=== PATIENT | male | born 1960 | race Caucasian/White ===

== ENCOUNTER → 2016-10-20 07:07 | Emergency (ER) | payer OTHER ==
[~2016-10-20 07:07] MED LIST: Divalproex ER TAB(*) 500 MG PO ONE; LORazepam TAB(*) 1 MG PO ONE; OLANzapine TAB* 10 MG PO ONE; clonazePAM TAB(*) 0.5 MG PO ONE
[2016-10-20 07:45] LABS: Urine Bacteria Absent (Absent); Urine Bilirubin Negative (Negative); Urine Glucose 1+(50 mg/dL) (Negative); Urine Nitrite Negative (Negative)
[2016-10-20 07:52] LABS: Benzodiazepine Urine Screen None Detected (None Detect)
[2016-10-20 07:54] LABS: Hematocrit 43 % (42-52); Hemoglobin 14.2 g/dl (14.0-18.0); Mean Corpuscular HGB Conc 33 g/dl (31-36); Mean Corpuscular Hemoglobin 29 pg (27-31); Mean Corpuscular Volume 88 fL (80-94); Mean Platelet Volume 9 um3 (7.4-10.4); Red Blood Count 4.86 10^6/ul (4.0-5.4); Red Cell Distribution Width 15 % (10.5-15); White Blood Count 8.8 10^3/ul (3.5-10.8)
[2016-10-20 08:08] LABS: ALT 14 U/L (7-52); AST 19 U/L (13-39); Alkaline Phosphatase 65 U/L (34-104); Anion Gap 7 mmol/L (2-11); BUN/Creatinine Ratio 12.7 (8-20); Blood Urea Nitrogen 14 mg/dL (6-24); CO2 Carbon Dioxide 22 mmol/L (22-32); Calcium 9.1 mg/dL (8.6-10.3); Chloride 107 mmol/L (101-111); EGFR African American 88.7 (>60); Globulin 3.2 g/dL (2-4); Glucose 106 mg/dL (70-100); Potassium 3.8 mmol/L (3.5-5.0); Sodium 136 mmol/L (133-145); Total Protein 7.2 g/dL (6.4-8.9)
[2016-10-20 09:33] LABS: Acetaminophen < 15 mcg/mL; Alcohol < 10 mg/dL (<10); Salicylate < 2.50 mg/dL (<30)
[2016-10-20 09:44] LABS: TSH (Thyroid Stimulating Horm) 1.41 mcIU/mL (0.34-5.60)
[2016-10-20 22:30] VITALS: BP 89/53
--- NOTE | 2016-10-21 09:09 | ED ---
Benson Arias Anna, scribed for Hayden Kruger MD on 10/20/16 at 0719 . Psychiatric Complaint - HPI Summary HPI Summary: Patient is a 56 y/o male brought in by EMS to [facility] after threatening his this morning. 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 Today, his started in on him, and he tried to have an adult conversation with her and he reports she was impossible to deal with, which caused him pain. He says he was going to use a pellet gun to smash his , the tv, and the sink to get some steam out, as his indignation is quite powerful. He reports that his indignation gets stronger each day. He ran out of his maintenance drug Divalproex. He reports that he needs his medicine and does not want to go home. He denies physical pain or medical concerns. Patient medications were reviewed on this visit. - History Of Current Complaint Chief Complaint: EDMentalHealth Hx Obtained From: Patient Onset/Duration: Still Present Severity Initially: Moderate Severity Currently: Moderate Aggravating Factor(s): Recent Stress Alleviating Factor(s): Medication - He ran out of his medication - Allergies/Home Medications Allergies/Adverse Reactions: Allergies Allergy/AdvReac Type Severity Reaction Status Date / Time No Known Allergies Allergy Verified 10/20/16 07:12 PMH/Surg Hx/FS Hx/Imm Hx Psychiatric History: Reports: Hx Anxiety, Hx Schizophrenia - atypical, Hx Substance Abuse - EtOH Denies: Hx Eating Disorder, Hx of Violent Episodes Against Others - Surgical History Surgery Procedure, Year, and Place: [facility] thorax cyst removal - Immunization History Date of Tetanus Vaccine: unknown Infectious Disease History: No Infectious Disease History: Denies: Traveled Outside the [place] in Last 30 Days - Family History Known Family History: Negative: Cardiac Disease, Diabetes - Social History Lives: With Family Alcohol Use: Occasionally Substance Use Type: Reports: Marijuana Substance Use Comment - Amount & Last Used: OCCASIONAL Smoking Status (MU): Former Smoker Type: Cigarettes Review of Systems Negative: Arthralgia, Myalgia Negative: Headache Psychological: Other - frustrated All Other Systems Reviewed And Are Negative: Yes Physical Exam - Summary Physical Exam Summary: VITAL SIGNS: Reviewed. GENERAL: Patient is a well-developed and nourished male who is lying comfortable in the stretcher. Patient appears somewhat distressed. HEAD AND FACE: No signs of trauma. No ecchymosis, hematomas or skull depressions. No sinus tenderness. EYES: PERRLA, EOMI x 2, No injected conjunctiva, no nystagmus. EARS: Hearing grossly intact. Ear canals and tympanic membranes are within normal limits. MOUTH: Oropharynx within normal limits. NECK: Supple, trachea is midline, no adenopathy, no JVD, no carotid bruit, no c- spine tenderness, neck with full ROM. CHEST: Symmetric, no tenderness at palpation LUNGS: Clear to auscultation bilaterally. No wheezing or crackles. CVS: Regular rate and rhythm, S1 and S2 present, no murmurs or gallops appreciated. ABDOMEN: Soft, non-tender. No signs of distention. No rebound no guarding, and no masses palpated. Bowel sounds are normal. EXTREMITIES: FROM in all major joints, no edema, no cyanosis or clubbing. NEURO: Alert and oriented x 3. No acute neurological deficits. Speech is normal and follows commands. SKIN: Dry and warm PSYCH: Anxious, and denies any suicidal thoughts or plan. No homicidal thoughts or plan. No signs of psychosis or pressure speech. Some tangential speech. Triage Information Reviewed: Yes Vital Signs On Initial Exam: Initial Vitals Temp Pulse Resp BP Pulse Ox 98.2 F 90 20 147/92 99 10/20/16 07:13 10/20/16 07:13 10/20/16 07:13 10/20/16 07:13 10/20/16 07:13 Vital Signs Reviewed: Yes Diagnostics - Vital Signs Vital Signs Temp Pulse Resp BP Pulse Ox 10/20/16 07:13 98.2 F 90 20 147/92 99 - Laboratory Lab Results: Lab Results 10/20/16 10/20/16 10/20/16 Range/Units 07:26 07:26 07:43 WBC 8.8 (3.5-10.8) 10^3/ul RBC 4.86 (4.0-5.4) 10^6/ul Hgb 14.2 (14.0-18.0) g/dl Hct 43 (42-52) % MCV 88 (80-94) fL MCH 29 (27-31) pg MCHC 33 (31-36) g/dl RDW 15 (10.5-15) % Plt Count 142 L (150-450) 10^3/ul MPV 9 (7.4-10.4) um3 Neut % (Auto) 66.3 (38-83) % Lymph % (Auto) 22.6 L (25-47) % Mayes % (Auto) 10.2 H (1-9) % Eos % (Auto) 0.3 (0-6) % Baso % (Auto) 0.6 (0-2) % Absolute Neuts (auto) 5.8 (1.5-7.7) 10^3/ul Absolute Lymphs (auto) 2.0 (1.0-4.8) 10^3/ul Absolute Monos (auto) 0.9 H (0-0.8) 10^3/ul Absolute Eos (auto) 0 (0-0.6) 10^3/ul Absolute Basos (auto) 0.1 (0-0.2) 10^3/ul Absolute Nucleated RBC 0.01 10^3/ul Nucleated RBC % 0.1 Sodium (133-145) mmol/L Potassium (3.5-5.0) mmol/L Chloride (101-111) mmol/L Carbon Dioxide (22-32) mmol/L Anion Gap (2-11) mmol/L BUN (6-24) mg/dL Creatinine (0.67-1.17) mg/dL Est GFR ( Amer) (>60) Est GFR (Non-Af Amer) (>60) BUN/Creatinine Ratio (8-20) Glucose (70-100) mg/dL Calcium (8.6-10.3) mg/dL Total Bilirubin (0.2-1.0) mg/dL AST (13-39) U/L ALT (7-52) U/L Alkaline Phosphatase (34-104) U/L Total Protein (6.4-8.9) g/dL Albumin (3.2-5.2) g/dL Globulin (2-4) g/dL Albumin/Globulin Ratio (1-3) TSH (0.34-5.60) mcIU/mL Urine Color Yellow Urine Appearance Clear Urine pH 7.0 (5-9) Ur Specific [place] 1.016 (1.010-1.030) Urine Protein Negative (Negative) Urine Ketones Negative (Negative) Urine Blood Negative (Negative) Urine Nitrate Negative (Negative) Urine Bilirubin Negative (Negative) Urine Urobilinogen Negative (Negative) Ur Leukocyte Esterase Trace H (Negative) Urine WBC (Auto) Trace(0-5/hpf) (Absent) Urine RBC (Auto) Absent (Absent) Urine Bacteria Absent (Absent) Urine Glucose 1+(50 mg/dl) H (Negative) Urine Ascorbic Acid * H (Negative) Salicylates (<30) mg/dL Urine Opiates Screen None detected (None Detect) Acetaminophen mcg/mL Ur Barbiturates Screen None detected (None Detect) Ur Phencyclidine Scrn None detected (None Detect) Ur Amphetamines Screen None detected (None Detect) U Benzodiazepines Scrn None detected (None Detect) Urine Cocaine Screen None detected (None Detect) U Cannabinoids Screen Presumptive positive H (None Detect) Serum Alcohol (<10) mg/dL 10/20/16 Range/Units 07:43 WBC (3.5-10.8) 10^3/ul RBC (4.0-5.4) 10^6/ul Hgb (14.0-18.0) g/dl Hct (42-52) % MCV (80-94) fL MCH (27-31) pg MCHC (31-36) g/dl RDW (10.5-15) % Plt Count (150-450) 10^3/ul MPV (7.4-10.4) um3 Neut % (Auto) (38-83) % Lymph % (Auto) (25-47) % Mayes % (Auto) (1-9) % Eos % (Auto) (0-6) % Baso % (Auto) (0-2) % Absolute Neuts (auto) (1.5-7.7) 10^3/ul Absolute Lymphs (auto) (1.0-4.8) 10^3/ul Absolute Monos (auto) (0-0.8) 10^3/ul Absolute Eos (auto) (0-0.6) 10^3/ul Absolute Basos (auto) (0-0.2) 10^3/ul Absolute Nucleated RBC 10^3/ul Nucleated RBC % Sodium 136 (133-145) mmol/L Potassium 3.8 (3.5-5.0) mmol/L Chloride 107 (101-111) mmol/L Carbon Dioxide 22 (22-32) mmol/L Anion Gap 7 (2-11) mmol/L BUN 14 (6-24) mg/dL Creatinine 1.10 (0.67-1.17) mg/dL Est GFR ( Amer) 88.7 (>60) Est GFR (Non-Af Amer) 69.0 (>60) BUN/Creatinine Ratio 12.7 (8-20) Glucose 106 H (70-100) mg/dL Calcium 9.1 (8.6-10.3) mg/dL Total Bilirubin 0.30 (0.2-1.0) mg/dL AST 19 (13-39) U/L ALT 14 (7-52) U/L Alkaline Phosphatase 65 (34-104) U/L Total Protein 7.2 (6.4-8.9) g/dL Albumin 4.0 (3.2-5.2) g/dL Globulin 3.2 (2-4) g/dL Albumin/Globulin Ratio 1.3 (1-3) TSH 1.41 (0.34-5.60) mcIU/mL Urine Color Urine Appearance Urine pH (5-9) Ur Specific [place] (1.010-1.030) Urine Protein (Negative) Urine Ketones (Negative) Urine Blood (Negative) Urine Nitrate (Negative) Urine Bilirubin (Negative) Urine Urobilinogen (Negative) Ur Leukocyte Esterase (Negative) Urine WBC (Auto) (Absent) Urine RBC (Auto) (Absent) Urine Bacteria (Absent) Urine Glucose (Negative) Urine Ascorbic Acid (Negative) Salicylates < 2.50 (<30) mg/dL Urine Opiates Screen (None Detect) Acetaminophen < 15 mcg/mL Ur Barbiturates Screen (None Detect) Ur Phencyclidine Scrn (None Detect) Ur Amphetamines Screen (None Detect) U Benzodiazepines Scrn (None Detect) Urine Cocaine Screen (None Detect) U Cannabinoids Screen (None Detect) Serum Alcohol < 10 (<10) mg/dL Result Diagrams: 10/20/16 07:43 10/20/16 07:43 Lab Statement: Any lab studies that have been ordered have been reviewed, and results considered in the medical decision making process. Course/Dx - Course Course Of Treatment: Patient is medically cleared for MHU evaluation at 0800. Assessment/Plan: Discussed case with Dr. Lopez. He recommends admission. The patient is from [place], and they will attempt to transfer pt to the [place]. Patient is hemodynamically stable and A+Ox3 - Differential Dx/Clinical Impression Provider Diagnosis: Homicidal ideation, Adjustment disorder - Physician Notifications Discussed Care Of Patient With: Discussed case with Dr. Lopez. He recommends admission. The patient is from [place], and they will attempt to transfer pt to the [place]. Discharge - Discharge Plan Condition: Fair Disposition: PSYCHIATRIC FACILITY-OTHER Discharge Disposition Comment: [facility] Referrals: Non Staff,Doctor [Primary Care Provider] - The documentation as recorded by the Benson chery Anna accurately reflects the service I personally performed and the decisions made by me, Hayden Kruger MD.
== END ==
LOC: ED 07:07
DX: R45.850 Homicidal ideations (principal); F43.20 Adjustment disorder, unspecified; F20.9 Schizophrenia, unspecified; Z87.891 Personal history of nicotine dependence
CPT/HCPCS: 36415; 80053; 80307; 80320; 80329; 81003; 81015; 84443; 85025; 87086; 99283; A9270-GY; G0480

== ENCOUNTER → 2016-11-05 10:24 | Emergency (ER) | payer OTHER ==
[~2016-11-05 10:24] MED LIST changes: -Divalproex ER TAB(*) 500 MG PO ONE; -LORazepam TAB(*) 1 MG PO ONE; -OLANzapine TAB* 10 MG PO ONE; +Potassium Chlor TAB* 20 MEQ TAB.ER PO ONE; -clonazePAM TAB(*) 0.5 MG PO ONE
[2016-11-05 11:52] LABS: Hematocrit 42 % (42-52); Mean Corpuscular HGB Conc 34 g/dl (31-36); Mean Corpuscular Hemoglobin 29 pg (27-31); Mean Corpuscular Volume 86 fL (80-94); Mean Platelet Volume 8 um3 (7.4-10.4); Red Blood Count 4.85 10^6/ul (4.0-5.4); Red Cell Distribution Width 14 % (10.5-15); White Blood Count 10.6 10^3/ul (3.5-10.8)
[2016-11-05 12:08] LABS: ALT 23 U/L (7-52); AST 48 U/L (13-39); Albumin 3.9 g/dL (3.2-5.2); Alkaline Phosphatase 52 U/L (34-104); Anion Gap 9 mmol/L (2-11); BUN/Creatinine Ratio 16.8 (8-20); Blood Urea Nitrogen 18 mg/dL (6-24); CO2 Carbon Dioxide 22 mmol/L (22-32); Calcium 9.1 mg/dL (8.6-10.3); Chloride 106 mmol/L (101-111); EGFR African American 91.6 (>60); EGFR Non-African American 71.2 (>60); Globulin 2.8 g/dL (2-4); Glucose 86 mg/dL (70-100); Potassium 3.3 mmol/L (3.5-5.0); Sodium 137 mmol/L (133-145); Total Protein 6.7 g/dL (6.4-8.9)
[2016-11-05 12:22] LABS: Acetaminophen < 15 mcg/mL; Alcohol < 10 mg/dL (<10); Salicylate < 2.50 mg/dL (<30)
[2016-11-05 12:30] LABS: TSH (Thyroid Stimulating Horm) 1.18 mcIU/mL (0.34-5.60)
[2016-11-05 13:11] LABS: Urine Bilirubin Negative (Negative); Urine Glucose Negative (Negative); Urine Nitrite Negative (Negative)
[2016-11-05 13:34] LABS: Benzodiazepine Urine Screen None Detected (None Detect)
[2016-11-05 15:05] VITALS: BP 101/63
--- NOTE | 2016-11-05 17:30 | ED ---
Messi Arias Aidan, scribed for Hayden Kruger MD on 11/05/16 at 1358 . Psychiatric Complaint - HPI Summary HPI Summary: 56 y/o male presents to the ED by police with a complaint of acutely and moderately feeling unlike himself. This morning at 0730, he smoked marijuana. Shortly after, he did not take his to her doctors appointment and felt bad as a result. He states that he was upset because he felt mean and out of character. He claims that the effects of the marijuana are starting to wear off. Pt denies any SI/HI. 2-3 days ago, he had a stressful situation during which his car was impounded. Currently, he takes a high dose of Depakote. Hx of bipolar disorder and schizophrenia. He is here today because police brought him in after he called 911 asking whether or not his was okay. - History Of Current Complaint Chief Complaint: EDMentalHealth Time Seen by Provider: 11/05/16 11:52 Hx Obtained From: Patient Onset/Duration: Sudden Onset, Lasting Hours, Resolved Timing: Intermittent Episode Lasting Severity Initially: Moderate Severity Currently: Mild Character: Depressed - sad and anxious about his 's well being, Anxious Aggravating Factor(s): Other - marijuana use today Alleviating Factor(s): Other - unknown Associated Signs And Symptoms: Negative: Negative - Hx of bipolar disorder Related History: Positive For: Prior Psychiatric Issues - bipolar disorder, schizophrenia Has Suicidal: Denies: Thoughts, With A Plan, Demonstrates Gesture, Has Prior Attempt(s) Has Homicidal: Denies: Thoughts, With A Plan, Demonstrates Gesture, Has Prior Attempt(s) Ingestion History: Type/Name Of Drug - marijuana - Risk Factor(s) Completed Suicide Risk Factors: Male - Allergies/Home Medications Allergies/Adverse Reactions: Allergies Allergy/AdvReac Type Severity Reaction Status Date / Time No Known Allergies Allergy Verified 10/20/16 07:12 PMH/Surg Hx/FS Hx/Imm Hx Psychiatric History: Reports: Hx Anxiety, Hx Schizophrenia - atypical, Hx Bipolar Disorder, Hx Substance Abuse - EtOH Denies: Hx Eating Disorder, Hx of Violent Episodes Against Others - Surgical History Surgery Procedure, Year, and Place: righ thorax cyst removal - Immunization History Date of Tetanus Vaccine: unknown Infectious Disease History: Unable to Obtain/Confirm Infectious Disease History: Denies: Traveled Outside the [place] in Last 30 Days - Family History Known Family History: Negative: Cardiac Disease, Diabetes - Social History Occupation: Disabled Lives: Alone Alcohol Use: Occasionally Substance Use Type: Reports: Marijuana Substance Use Comment - Amount & Last Used: OCCASIONAL Smoking Status (MU): Former Smoker Type: Cigarettes Review of Systems Constitutional: Negative Eyes: Negative ENT: Negative Cardiovascular: Negative Respiratory: Negative Gastrointestinal: Negative Genitourinary: Negative Musculoskeletal: Negative Skin: Negative Neurological: Other - Pt feeling affects of smoking marijuana Negative: Headache, Weakness, Paresthesia, Numbness, Syncope, Slurred Speech Psychological: Normal All Other Systems Reviewed And Are Negative: Yes Physical Exam - Summary Physical Exam Summary: VITAL SIGNS: Reviewed. GENERAL: Patient is a well-developed and nourished MALE who is lying comfortable in the stretcher. Patient is not in any acute respiratory distress. HEAD AND FACE: No signs of trauma. No ecchymosis, hematomas or skull depressions. No sinus tenderness. EYES: PERRLA, EOMI x 2, No injected conjunctiva, no nystagmus. EARS: Hearing grossly intact. Ear canals and tympanic membranes are within normal limits. MOUTH: Oropharynx within normal limits. NECK: Supple, trachea is midline, no adenopathy, no JVD, no carotid bruit, no c- spine tenderness, neck with full ROM. CHEST: Symmetric, no tenderness at palpation LUNGS: Clear to auscultation bilaterally. No wheezing or crackles. CVS: Regular rate and rhythm, S1 and S2 present, no murmurs or gallops appreciated. ABDOMEN: Soft, non-tender. No signs of distention. No rebound no guarding, and no masses palpated. Bowel sounds are normal. EXTREMITIES: FROM in all major joints, no edema, no cyanosis or clubbing. NEURO: Alert and oriented x 3. No acute neurological deficits. Speech is normal and follows commands. SKIN: Dry and warm Triage Information Reviewed: Yes Vital Signs On Initial Exam: Initial Vitals Temp Pulse Resp BP Pulse Ox 97.5 F 67 20 139/93 97 11/05/16 10:38 11/05/16 10:38 11/05/16 10:38 11/05/16 10:38 11/05/16 10:38 Vital Signs Reviewed: Yes - [place] Coma Scale Coma Scale Total: 15 Diagnostics - Vital Signs Vital Signs Temp Pulse Resp BP Pulse Ox 11/05/16 10:41 97.9 F 84 17 139/93 97 11/05/16 10:38 97.5 F 67 20 139/93 97 - Laboratory Lab Results: Lab Results 11/05/16 11/05/16 11/05/16 Range/Units 11:32 11:32 12:57 WBC 10.6 (3.5-10.8) 10^3/ul RBC 4.85 (4.0-5.4) 10^6/ul Hgb 14.0 (14.0-18.0) g/dl Hct 42 (42-52) % MCV 86 (80-94) fL MCH 29 (27-31) pg MCHC 34 (31-36) g/dl RDW 14 (10.5-15) % Plt Count 169 (150-450) 10^3/ul MPV 8 (7.4-10.4) um3 Neut % (Auto) 69.4 (38-83) % Lymph % (Auto) 22.6 L (25-47) % [place] % (Auto) 7.1 (1-9) % Eos % (Auto) 0.5 (0-6) % Baso % (Auto) 0.4 (0-2) % Absolute Neuts (auto) 7.3 (1.5-7.7) 10^3/ul Absolute Lymphs (auto) 2.4 (1.0-4.8) 10^3/ul Absolute Monos (auto) 0.8 (0-0.8) 10^3/ul Absolute Eos (auto) 0 (0-0.6) 10^3/ul Absolute Basos (auto) 0 (0-0.2) 10^3/ul Absolute Nucleated RBC 0.01 10^3/ul Nucleated RBC % 0.1 Sodium 137 (133-145) mmol/L Potassium 3.3 L (3.5-5.0) mmol/L Chloride 106 (101-111) mmol/L Carbon Dioxide 22 (22-32) mmol/L Anion Gap 9 (2-11) mmol/L BUN 18 (6-24) mg/dL Creatinine 1.07 (0.67-1.17) mg/dL Est GFR ( Amer) 91.6 (>60) Est GFR (Non-Af Amer) 71.2 (>60) BUN/Creatinine Ratio 16.8 (8-20) Glucose 86 (70-100) mg/dL Calcium 9.1 (8.6-10.3) mg/dL Total Bilirubin 0.40 (0.2-1.0) mg/dL AST 48 H (13-39) U/L ALT 23 (7-52) U/L Alkaline Phosphatase 52 (34-104) U/L Total Protein 6.7 (6.4-8.9) g/dL Albumin 3.9 (3.2-5.2) g/dL Globulin 2.8 (2-4) g/dL Albumin/Globulin Ratio 1.4 (1-3) TSH 1.18 (0.34-5.60) mcIU/mL Urine Color Colorless Urine Appearance Clear Urine pH 6.0 (5-9) Ur Specific [place] 1.002 L (1.010-1.030) Urine Protein Negative (Negative) Urine Ketones Negative (Negative) Urine Blood Negative (Negative) Urine Nitrate Negative (Negative) Urine Bilirubin Negative (Negative) Urine Urobilinogen Negative (Negative) Ur Leukocyte Esterase Negative (Negative) Urine Glucose Negative (Negative) Salicylates < 2.50 (<30) mg/dL Urine Opiates Screen (None Detect) Acetaminophen < 15 mcg/mL Ur Barbiturates Screen (None Detect) Ur Phencyclidine Scrn (None Detect) Ur Amphetamines Screen (None Detect) U Benzodiazepines Scrn (None Detect) Urine Cocaine Screen (None Detect) U Cannabinoids Screen (None Detect) Serum Alcohol < 10 (<10) mg/dL 11/05/16 Range/Units 12:57 WBC (3.5-10.8) 10^3/ul RBC (4.0-5.4) 10^6/ul Hgb (14.0-18.0) g/dl Hct (42-52) % MCV (80-94) fL MCH (27-31) pg MCHC (31-36) g/dl RDW (10.5-15) % Plt Count (150-450) 10^3/ul MPV (7.4-10.4) um3 Neut % (Auto) (38-83) % Lymph % (Auto) (25-47) % [place] % (Auto) (1-9) % Eos % (Auto) (0-6) % Baso % (Auto) (0-2) % Absolute Neuts (auto) (1.5-7.7) 10^3/ul Absolute Lymphs (auto) (1.0-4.8) 10^3/ul Absolute Monos (auto) (0-0.8) 10^3/ul Absolute Eos (auto) (0-0.6) 10^3/ul Absolute Basos (auto) (0-0.2) 10^3/ul Absolute Nucleated RBC 10^3/ul Nucleated RBC % Sodium (133-145) mmol/L Potassium (3.5-5.0) mmol/L Chloride (101-111) mmol/L Carbon Dioxide (22-32) mmol/L Anion Gap (2-11) mmol/L BUN (6-24) mg/dL Creatinine (0.67-1.17) mg/dL Est GFR ( Amer) (>60) Est GFR (Non-Af Amer) (>60) BUN/Creatinine Ratio (8-20) Glucose (70-100) mg/dL Calcium (8.6-10.3) mg/dL Total Bilirubin (0.2-1.0) mg/dL AST (13-39) U/L ALT (7-52) U/L Alkaline Phosphatase (34-104) U/L Total Protein (6.4-8.9) g/dL Albumin (3.2-5.2) g/dL Globulin (2-4) g/dL Albumin/Globulin Ratio (1-3) TSH (0.34-5.60) mcIU/mL Urine Color Urine Appearance Urine pH (5-9) Ur Specific [place] (1.010-1.030) Urine Protein (Negative) Urine Ketones (Negative) Urine Blood (Negative) Urine Nitrate (Negative) Urine Bilirubin (Negative) Urine Urobilinogen (Negative) Ur Leukocyte Esterase (Negative) Urine Glucose (Negative) Salicylates (<30) mg/dL Urine Opiates Screen None detected (None Detect) Acetaminophen mcg/mL Ur Barbiturates Screen None detected (None Detect) Ur Phencyclidine Scrn None detected (None Detect) Ur Amphetamines Screen None detected (None Detect) U Benzodiazepines Scrn None detected (None Detect) Urine Cocaine Screen None detected (None Detect) U Cannabinoids Screen Presumptive positive H (None Detect) Serum Alcohol (<10) mg/dL Result Diagrams: 11/05/16 11:32 11/05/16 11:32 Lab Statement: Any lab studies that have been ordered have been reviewed, and results considered in the medical decision making process. Course/Dx - Course Assessment/Plan: 56 y/o male presents to the ED by police with a complaint of acutely and moderately feeling unlike himself. This morning at 0730, he smoked marijuana. Shortly after, he did not take his to her doctor's appointment and felt bad as a result. He states that he was upset because he felt mean and out of character. He claims that the effects of the marijuana are starting to wear off. Pt denies any SI/HI. 2-3 days ago, he had a stressful situation during which his car was impounded. Currently, he takes a high dose of Depakote. Hx of bipolar disorder and schizophrenia. He is here today because police brought him in after he called 911 asking whether or not his was okay. All blood work WNL. He is medically cleared. He is awaiting for a MHE. Patient is hemodynamically stable and A+O x 3. Dr. Narvaez (Psychiatry) saw and examined the patient and clear the patient and recommends to discharge the patient home with outpatient follow up. - Differential Dx/Clinical Impression Differential Diagnosis/HQI/PQRI: Positive: Anxiety, Depression, Suicidal Ideation Provider Diagnosis: Bipolar disorder Discharge - Discharge Plan Condition: Stable Disposition: HOME Referrals: Non Staff,Doctor [Primary Care Provider] - The documentation as recorded by the Messi chery Aidan accurately reflects the service I personally performed and the decisions made by me, Hayden Kruger MD.
== END | disposition home or self-care (01) ==
LOC: ED 10:24
DX: F31.9 Bipolar disorder, unspecified (principal); Z87.891 Personal history of nicotine dependence; Z53.21 Procedure and treatment not carried out due to patient leaving prior to being seen by health care provider
CPT/HCPCS: 36415; 80053; 80307; 80320; 80329; 81003; 84443; 85025; G0480

== ENCOUNTER 2016-12-12 04:56 | Observation (INO) | payer OTHER ==
[2016-12-12 05:26] LABS: Hematocrit 41 % (42-52); Hemoglobin 13.6 g/dl (14.0-18.0); Mean Corpuscular HGB Conc 33 g/dl (31-36); Mean Corpuscular Hemoglobin 29 pg (27-31); Mean Corpuscular Volume 86 fL (80-94); Mean Platelet Volume 8 um3 (7.4-10.4); Red Blood Count 4.75 10^6/ul (4.0-5.4); Red Cell Distribution Width 15 % (10.5-15); White Blood Count 6.5 10^3/ul (3.5-10.8)
[2016-12-12 05:38] LABS: ALT 8 U/L (7-52); AST 13 U/L (13-39); Albumin 3.8 g/dL (3.2-5.2); Alkaline Phosphatase 49 U/L (34-104); Anion Gap 10 mmol/L (2-11); BUN/Creatinine Ratio 16.3 (8-20); Blood Urea Nitrogen 14 mg/dL (6-24); CO2 Carbon Dioxide 19 mmol/L (22-32); Chloride 108 mmol/L (101-111); EGFR African American 117.9 (>60); EGFR Non-African American 91.7 (>60); Globulin 2.6 g/dL (2-4); Glucose 124 mg/dL (70-100); Potassium 3.3 mmol/L (3.5-5.0); Sodium 137 mmol/L (133-145); Total Protein 6.4 g/dL (6.4-8.9)
--- NOTE | 2016-12-12 05:50 | ED ---
martha Arias Timothy, scribed for Jose LuisPapa on 12/12/16 at 0511 . Substance Abuse/Use - HPI Summary HPI Summary: Mikel Krishnamurthy is a 56 yo male presenting to [facility] with possible OD of depakote. Pt states he believes he took an extra dose (5 pills) of depakote. He states he noticed the effects on his motor skills. Pt states he "wanted to feel better" and denies SI or HI. He states prior to taking the pills he "didn' t care". He is not in any current pain. His MHx includes atypical schizophrenia , bipolar disorder, anxiety, EtOH abuse. - History Of Current Complaint Stated Complaint: OVERDOSE Time Seen by Provider: 12/12/16 05:11 Hx Obtained From: Patient Onset/Duration of Drug/ETOH Abuse: Hours Ingestion History: Type/Name Of Drug - depakote, Amount Ingested - 5x pills Overdose Characteristics: Oral Timing Of Abuse: Daily Severity Initially: Moderate Severity Currently: Moderate - Allergies/Home Medications Allergies/Adverse Reactions: Allergies Allergy/AdvReac Type Severity Reaction Status Date / Time No Known Allergies Allergy Verified 10/20/16 07:12 Home Medications: Home Medications Aspirin [Aspirin 81 MG TAB] 81 mg PO DAILY 12/12/16 [History Confirmed 12/12/16] QUEtiapine TAB* [SEROquel TAB*] 400 mg PO BEDTIME 12/12/16 [History Confirmed ] PMH/Surg Hx/FS Hx/Imm Hx Psychiatric History: Reports: Hx Anxiety, Hx Schizophrenia - atypical, Hx Bipolar Disorder, Hx Substance Abuse - EtOH Denies: Hx Eating Disorder, Hx of Violent Episodes Against Others - Surgical History Surgery Procedure, Year, and Place: rig thorax cyst removal - Immunization History Date of Tetanus Vaccine: unknown Infectious Disease History: No Infectious Disease History: Denies: Traveled Outside the [place] in Last 30 Days - Family History Known Family History: Positive: Other - psychotic disorders, EtOG abuse Negative: Cardiac Disease, Diabetes - Social History Alcohol Use: Occasionally Substance Use Type: Reports: Marijuana Substance Use Comment - Amount & Last Used: OCCASIONAL Smoking Status (MU): Former Smoker Type: Cigarettes Review of Systems Constitutional: Negative Eyes: Negative ENT: Negative Cardiovascular: Negative Respiratory: Negative Gastrointestinal: Negative Genitourinary: Negative Musculoskeletal: Negative Skin: Negative Neurological: Negative Positive: Other - OD on depakote All Other Systems Reviewed And Are Negative: Yes Physical Exam Triage Information Reviewed: Yes Vital Signs On Initial Exam: Initial Vitals Pulse Resp Pulse Ox 101 17 97 12/12/16 05:01 12/12/16 05:01 12/12/16 05:01 Vital Signs Reviewed: Yes Appearance: Positive: Well-Appearing, No Pain Distress, Well-Nourished Skin: Positive: Warm, Skin Color Reflects Adequate Perfusion, Dry Head/Face: Positive: Normal Head/Face Inspection Eyes: Positive: EOMI, MISTY ENT: Positive: Normal ENT inspection, Hearing grossly normal. Negative: Muffled /hoarse voice Neck: Positive: Supple, Nontender Respiratory/Lung Sounds: Positive: Clear to Auscultation, Breath Sounds Present Cardiovascular: Positive: Pulses are Symmetrical in both Upper and Lower Extremities, Tachycardia Abdomen Description: Positive: Nontender, Soft Bowel Sounds: Positive: Present Musculoskeletal: Positive: Normal, Strength/ROM Intact Neurological: Positive: Normal, Sensory/Motor Intact, Alert, Oriented to Person Place, Time Psychiatric: Positive: Depressed Diagnostics - Vital Signs Vital Signs Temp Pulse Resp BP Pulse Ox 12/12/16 05:02 97.5 F 93 16 132/75 96 12/12/16 05:01 101 17 97 - Laboratory Result Diagrams: 12/12/16 05:00 12/12/16 05:00 Lab Statement: Any lab studies that have been ordered have been reviewed, and results considered in the medical decision making process. - EKG 0526 Cardiac Rate: NL - 90 BPM EKG Interpretation: NSR @ [address] changes Course/Dx - Course Assessment/Plan: Mikel Krishnamurthy is a 56 yo male presenting to [facility] S/ P OD on depakote. Pt medication list reviewed this visit. His EKG suggests NSR with old ST changes. He will be signed out to Dr. Kruger pending medical clearance for [facility]. - Diagnoses Differential Diagnosis/HQI/PQRI: Positive: Depression Provider Diagnoses: Drug overdose, Depression Discharge - Discharge Plan Condition: Stable Disposition: OTHER Discharge Disposition Comment: sign out pending medical clearance for MHUE The documentation as recorded by the martha chery Timothy accurately reflects the service I personally performed and the decisions made by , Papa Amaya.
[2016-12-12 05:52] LABS: Acetaminophen < 15 mcg/mL; Alcohol < 10 mg/dL (<10); Salicylate < 2.50 mg/dL (<30)
[2016-12-12 06:01] LABS: TSH (Thyroid Stimulating Horm) 1.68 mcIU/mL (0.34-5.60)
[2016-12-12] MEDS ORDERED: Potassium Chlor TAB* 20 MEQ TAB.ER PO ONE ×2 (06:01→09:49)
[2016-12-12] MEDS ORDERED: Charcoal ACTIVATED* 25 GM/120 ML BTL PO ONE ×2 (06:23→08:38)
[2016-12-12 06:33] LABS: Urine Bilirubin Negative (Negative); Urine Glucose Negative (Negative); Urine Nitrite Negative (Negative)
[2016-12-12 06:36] LABS: Benzodiazepine Urine Screen None Detected (None Detect)
[2016-12-12] MEDS ORDERED: Nicotine Lozenge* 4 MG LOZENGE MT ONE ×2 (06:47)
[2016-12-12] MEDS ORDERED: NS 0.9% 1000 ML* 1,000 ML IV ONE (08:45)
[2016-12-12 09:58] LABS: Albumin 3.9 g/dL (3.2-5.2); BUN/Creatinine Ratio 12.5 (8-20); Calcium 8.8 mg/dL (8.6-10.3); EGFR African American 114.8 (>60); EGFR Non-African American 89.3 (>60); Globulin 2.5 g/dL (2-4); Potassium 3.4 mmol/L (3.5-5.0); Total Bilirubin 0.4 mg/dL (0.2-1.0); Total Protein 6.4 g/dL (6.4-8.9)
[2016-12-12] MEDS: NS 0.9% 1000 ML* 2,000 ML IV ONE (10:16)
[2016-12-12 11:43] LABS: Troponin I 0.01 ng/mL (<0.04)
[2016-12-12] MEDS: NS 0.9% 1000 ML* 1,000 ML IV SCH ×2 (13:32→22:53)
[2016-12-12] MEDS: Nicotine Lozenge* 4 MG LOZENGE MT PRN ×3 (14:13→23:11)
--- NOTE | 2016-12-12 14:19 | HP ---
CC: CT Office, [place], [place] * HISTORY AND PHYSICAL: DATE OF ADMISSION: 12/12/16 PRIMARY CARE PROVIDER: CT office in [place]. The patient cannot recall the name. CHIEF COMPLAINT: Depakote overdose. HISTORY OF PRESENT ILLNESS: Mikel Krishnamurthy is a 56-year-old male with history of schizoaffective disorder and bipolar disorder, who presented to the hospital after taking 10 tablets of Depakote to stabilize his mood. The patient stated that he felt "too low," and he took 10 of his prescribed Depakote tablets to "pick himself up." When he presented to the ED, his initial Depakote level was 168. He stayed in the hospital for 3 hours and his Depakote level has increased to 195. He is going to be placed on overnight observation with diagnosis of Depakote overdose and psychiatric clearance in the morning. PAST MEDICAL HISTORY: 1. History of schizophrenia. 2. History of bipolar disorder. MEDICATIONS: Include: 1. Depakote ER 2500 mg at bedtime. 2. Aspirin 81 mg daily. 3. Seroquel 400 mg at bedtime. ALLERGIES: No known drug allergies. FAMILY HISTORY: Positive for mother with ovarian cancer and father with lung cancer, both . SOCIAL HISTORY: When I asked about smoking, the patient stated that "the only smoke that I will allow in my body is marijuana." He smokes marijuana several times a day. He denies any alcohol use and he stated that he quit in 1990. He denies any drug use. He lives with his who has dementia. For his surrogate, he is naming his brother, Shekhar Krishnamurthy. REVIEW OF SYSTEMS: Please see history of present illness. The patient denies suicidal ideations, but he states that he feels "low." He denies any chest pain or shortness of breath. He denies any gastrointestinal symptoms. All the remaining 14 systems were reviewed with the patient and were otherwise negative. Please also note that the patient stated that right after taking Depakote, he felt that his muscle control was "weakened." He stated that he had problems with fine motor functions and manipulating with his fingers. That apparently resolved. PHYSICAL EXAMINATION GENERAL: The patient is a pleasant 56-year-old male who is in no acute distress. The patient is a rather poor historian, but he is oriented x3. VITAL SIGNS: Blood pressure of 126/70, heart rate of 85 beats per minute, respiratory rate 14, oxygen saturation 97% on room air, temperature 97.5. HEENT: Head is atraumatic, normocephalic. Eyes: Pupils equal and reactive to light and accommodation. Oropharynx with poor dentition. Mucosa moist. Blackened tongue from charcoal that he was administered in the ED. NECK: Supple. No JVD. No bruits bilaterally. RESPIRATORY: Clear to auscultation bilaterally. CARDIOVASCULAR: Regular rate and rhythm. No murmur. ABDOMEN: Soft, nontender. Bowel sounds present in all 4 quadrants. EXTREMITIES: There is no edema. Pulses +2 bilaterally. No clubbing or cyanosis. NEURO: Speech clear. Cranial nerves II through XII grossly intact. Motor strength is 5/5 bilaterally. SKIN: On evaluation of the skin, no ecchymotic areas or rashes noted. DIAGNOSTIC STUDIES/LAB DATA: Showed Depakote level of 195. White blood cell count of 6.5, hemoglobin of 13.6, hematocrit of 41, and platelets of 125. The patient has a history of baseline thrombocytopenia. Sodium of 136, potassium 3.3, chloride 108, carbon dioxide 19, BUN 14, creatinine 0.86. Liver function test is unremarkable. Ammonia level 26. Urinalysis unremarkable, trace ketones. Urine drug screen positive for cannabinoids. The patient's EKG showed ST depressions in leads V2 to V5. This was slightly more pronounced from his baseline EKG from 2013. Troponin is pending at the time of dictation. ASSESSMENT AND PLAN: 1. Depakote overdose. The patient does not appear to be suicidal and he denies suicide ideation. It appears that he has problems with bipolar disorder and ability to control it. He also is a poor and somewhat disorganized historian, although currently he is oriented x3. At this point, the patient is going to be observed on telemetry monitored bed. He is going to be placed on intravenous hydration with normal saline. His Depakote is going to be held and Depakote level as well as complete metabolic panel levels and ammonia levels are going to be checked every 6 hours until peak. I will ask Psychiatry to see the patient in the morning. Due to somewhat disorganized thinking during the patient's interview, I am going to place him on one-to-one monitoring, although once again he does not appear to be suicidal. 2. The patient's nighttime Seroquel is going to be continued. 3. For DVT prophylaxis, the patient is at low risk and ambulation is going to be encouraged. 4. The patient's code status is full and his surrogate is his brother, Shekhar. TIME SPENT: Approximately 62 minutes was spent on admission of this patient, more than half that time was spent [id number] with the patient during the interview and physical exam. [id number]/[facility] #: [id number] TESSA
--- NOTE | 2016-12-12 20:01 | ED ---
Audra Arias Edward, scribed for Hayden Kruger MD on 12/12/16 at 0727 . Progress - Progress Note Progress Note: Patient feels better on visit. Patient's valproic acid levels came back at 195.0 - higher than initial levels. Poison control was called, who recommended we take the patient's ammonia, CMP and Depakote levels in 6-8 hours, in addition to another EKG. 2nd EKG - 08:51 - SR @ [address] depressions @ v2 to v6 and also in II and III. Patient was accepted for admission by Dr. Hsu @ 08:45. PE - VITAL SIGNS:~Reviewed. GENERAL:~ Patient is a well-developed and nourished male who is lying comfortable in the stretcher.~ Patient is not in any acute respiratory distress. HEAD AND FACE:~No signs of trauma.~ No ecchymosis, hematomas or skull depressions. No sinus tenderness. EYES:~PERRLA, EOMI x 2, No injected conjunctiva, no nystagmus. EARS:~Hearing grossly intact. Ear canals and tympanic membranes are within normal limits. MOUTH:~Oropharynx within normal limits. NECK:~Supple, trachea is midline, no adenopathy, no JVD, no carotid bruit, no c- spine tenderness, neck with full ROM. CHEST:~Symmetric, no tenderness at palpation LUNGS:~Clear to auscultation bilaterally. No wheezing or crackles. CVS:~Regular rate and rhythm, S1 and S2 present, no murmurs or gallops appreciated. ABDOMEN:~Soft, non-tender. No signs of distention. No rebound no guarding, and no masses palpated. Bowel sounds are normal. EXTREMITIES:~FROM in all major joints, no edema, no cyanosis or clubbing. NEURO:~Alert and oriented x 3. No acute neurological deficits. Speech is normal and follows commands. SKIN:~Dry and warm ~ Assessment and Plan - Patient was signed out by Dr bui to f/u depakote levels. First valproic acid level was elevated @ 168 for which the pt was given activated Charcol. Second level after 4 hours elevated to 195. At this point we discussed the case with poison control, who recommended we check ammonia, CMP, and Depakote levels every 6-8 hours, as well as a second EKG. 2nd EKG - 08:51 - SR @ [address] depressions @ v2 to v6 and also in II and III. Pt does not c/o CP, SOB or palpitation. The patient has no symptoms. Patient is lying comfortably in a stretcher. Discussed case with Dr. Hsu who accepted the pt for admission. The patient is hemodynamically stable, A&Ox3. Course/Dx - Diagnoses Provider Diagnoses: Drug overdose, Depression - Provider Notifications Instructed by Provider To: Admit As Inpatient The documentation as recorded by the Audra chery Edward accurately reflects the service I personally performed and the decisions made by , Hayden Kruger MD.
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
[2016-12-12] MEDS ORDERED: QUEtiapine TAB* 100 MG PO SCH (21:00)
[2016-12-13] MEDS: Nicotine Lozenge* 4 MG LOZENGE MT PRN ×3 (01:10→09:27)
[2016-12-13] MEDS: NS 0.9% 1000 ML* 1,000 ML IV SCH (07:26)
[2016-12-13 08:45] VITALS: BP 115/100
--- NOTE | 2016-12-14 03:33 | DS ---
CC: [place] office, [place]; Dr. Carlos Eduardo Stein, [place], [place]; Dr. Ruth * DISCHARGE SUMMARY: DATE OF ADMISSION: 12/12/16 DATE OF DISCHARGE: 12/13/16 DISCHARGE DIAGNOSIS: Depakote overdose. SECONDARY DIAGNOSES: 1. History of bipolar disorder. 2. History of schizophrenia. LABORATORY DATA AND STUDIES PERFORMED DURING HOSPITAL STAY: Included: On 12/12, sodium was 141, potassium 3.4, chloride 109, carbon dioxide 21, BUN 11, creatinine 0.88. The patient's ammonia level was 31 on 12/13/16. The patient' s Depakote level on 12/11/16 at 8 a.m. was 88. CONSULTATIONS DURING THE HOSPITAL STAY: Included Dr. Ruth from Psychiatry. HOSPITALIZATION COURSE: Mikel Krishnamurthy is a 56-year-old male with history of bipolar disorder and schizo-phrenia who stated that he took 10 tablets of his Depakote to bring himself "up." He did not try to attempt suicide and denied suicidal ideation. He came into the hospital since he felt poorly and he felt that his increased Depakote level worsened his fine motor skills. When he presented to the ED, apart from somewhat disorganized thinking which is patient's baseline, no other abnormalities were noted apart from his Depakote level rising to a maximum of 195 on 12/12/16. Due to that, the patient was placed on overnight observation, rehydrated, his Depakote was held. Dr. Ruth saw patient from Psychiatry and recommended no change in his medications and for the patient to follow up with his primary psychiatrist, Dr. Stein, as scheduled in 9 days. The patient was not suicidal. He is aware of the inappropriateness of taking his Depakote in excessive amount and he stated that from now on, he will take his medications as directed. He does feel that Seroquel causes him "to be more psychotic" and he wishes to discontinue it. Once again as per Dr. Ruth, patient is to be discharged on the same medications and he is going to discuss his possibility of medication changes with Dr. Stein on 12/21/16, when he is scheduled to see the psychiatrist. PHYSICAL EXAM: At the time of discharge, unchanged from prior. MEDICATIONS AT DISCHARGE: Include: 1. Depakote 2500 mg at bedtime. 2. Aspirin 81 mg daily. 3. Seroquel 400 mg at bedtime. Please note that this is a short summary of the patient's hospital stay. Please refer to further medical records for details. Approximately 35 minutes was spent in patient's discharge. [id number]/[facility] #: [id number] MTDD
== END 2016-12-13 11:25 | disposition home or self-care (01) ==
LOC: ED 04:56 → MEDTELE 08:46
PROVIDERS: ADMIT Internal Medicine; ATTEND Internal Medicine
DX: T42.6X1A Poisoning by other antiepileptic and sedative-hypnotic drugs, accidental (unintentional), initial encounter (principal); F25.0 Schizoaffective disorder, bipolar type; Z79.82 Long term (current) use of aspirin; Z79.899 Other long term (current) drug therapy; Z87.891 Personal history of nicotine dependence; R94.31 Abnormal electrocardiogram [ECG] [EKG]
CPT/HCPCS: 36415; 80053; 80164; 80307; 80320; 80329; 81003; 82140; 84443; 84484; 85025; 93005; 96360; 96361; 99284; A9270-GY; G0378; G0480

== ENCOUNTER 2016-12-20 20:30 | Emergency (ER) | payer OTHER ==
[2016-12-20] MEDS ORDERED: Ziprasidone IM INJ* 20 MG/ML VIAL IM ONE (21:11)
[2016-12-20] MEDS ORDERED: Ziprasidone IM INJ* 20 MG/ML VIAL ONE (21:13)
[2016-12-20] MEDS ORDERED: Sterile Water for Inj* 10 ML ONE (21:14)
[2016-12-20] MEDS ORDERED: LORazepam INJ* 2 MG/ML 1 ML VIAL ONE (21:18)
[2016-12-20] MEDS ORDERED: diPHENhydraMINE IV* 50 MG/ML 1 ml VIAL (BENADRYL) ONE (21:18)
[2016-12-20] MEDS ORDERED: Haloperidol INJ IV/IM* 5 MG/ML AMP ONE (21:18)
[2016-12-20] MEDS ORDERED: Haloperidol INJ IV/IM* 5 MG/ML AMP IM ONE (21:26)
[2016-12-20] MEDS ORDERED: diPHENhydraMINE IV* 50 MG/ML 1 ml VIAL (BENADRYL) IM ONE (21:26)
[2016-12-20] MEDS ORDERED: LORazepam INJ* 2 MG/ML 1 ML VIAL IM ONE (21:26)
[2016-12-20 21:55] LABS: Urine Bacteria Absent (Absent); Urine Bilirubin Negative (Negative); Urine Glucose Negative (Negative); Urine Nitrite Negative (Negative)
[2016-12-20 21:59] LABS: Benzodiazepine Urine Screen None Detected (None Detect)
[2016-12-20] MEDS ORDERED: OLANzapine TAB*ODT* 5 MG ONE (22:37)
[2016-12-20] MEDS ORDERED: OLANzapine TAB*ODT* 10 MG TAB PO ONE (22:42)
[2016-12-20 23:42] LABS: Hematocrit 42 % (42-52); Hemoglobin 13.9 g/dl (14.0-18.0); Mean Corpuscular HGB Conc 33 g/dl (31-36); Mean Corpuscular Hemoglobin 28 pg (27-31); Mean Corpuscular Volume 86 fL (80-94); Mean Platelet Volume 8 um3 (7.4-10.4); Red Blood Count 4.91 10^6/ul (4.0-5.4); Red Cell Distribution Width 15 % (10.5-15); White Blood Count 7.5 10^3/ul (3.5-10.8)
[2016-12-20 23:58] LABS: ALT 7 U/L (7-52); AST 19 U/L (13-39); Acetaminophen < 15 mcg/mL; Albumin 3.7 g/dL (3.2-5.2); Alcohol < 10 mg/dL (<10); Alkaline Phosphatase 50 U/L (34-104); Anion Gap 7 mmol/L (2-11); Blood Urea Nitrogen 10 mg/dL (6-24); CO2 Carbon Dioxide 22 mmol/L (22-32); Calcium 9.4 mg/dL (8.6-10.3); Chloride 107 mmol/L (101-111); EGFR African American 99.1 (>60); Glucose 128 mg/dL (70-100); Potassium 3.7 mmol/L (3.5-5.0); Salicylate < 2.50 mg/dL (<30); Sodium 136 mmol/L (133-145); Total Protein 6.7 g/dL (6.4-8.9)
[2016-12-21 00:08] LABS: TSH (Thyroid Stimulating Horm) 1.43 mcIU/mL (0.34-5.60)
--- NOTE | 2016-12-21 00:23 | ED ---
Eliu Arias Alfonso, scribed for Papa Amaya on 12/20/16 at 2135 . Altered Mental Status - HPI Summary HPI Summary: This patient is a 56 year old M brought in by police 941 to [facility] for AMS since 1999 today. He reports I am being treated like toxic waste. Pt rates the pain 0/10 in severity. Symptoms aggravated and alleviated by nothing. Pt has flight of idea, paranoia, and is confrontational. Pt reports depression. Pt denies hearing voices, and SI. PMHx of schizophrenia. - History Of Current Complaint Chief Complaint: EDMentalHealth Stated Complaint: 941 Time Seen by Provider: 12/20/16 21:03 Hx Obtained From: Patient Onset/Duration: Still Present Timing: Constant Severity Initially: Moderate Severity Currently: Moderate Aggravating Factor(s): Nothing Alleviating Factor(s): Nothing Associated Signs And Symptoms: Negative: Fever - Allergies/Home Medications Allergies/Adverse Reactions: Allergies Allergy/AdvReac Type Severity Reaction Status Date / Time No Known Allergies Allergy Verified 10/20/16 07:12 PMH/Surg Hx/FS Hx/Imm Hx Sensory History: Denies: Hx Contacts or Glasses, Hx Hearing Aid Opthamlomology History: Denies: Hx Contacts or Glasses Psychiatric History: Reports: Hx Anxiety, Hx Schizophrenia, Hx Bipolar Disorder , Hx Substance Abuse - EtOH Denies: Hx Eating Disorder, Hx of Violent Episodes Against Others - Surgical History Surgery Procedure, Year, and Place: [facility] thorax cyst removal - Immunization History Date of Tetanus Vaccine: unknown Infectious Disease History: Unable to Obtain/Confirm Infectious Disease History: Denies: Traveled Outside the [place] in Last 30 Days - Family History Known Family History: Positive: Other - psychotic disorders, EtOH abuse Negative: Cardiac Disease, Diabetes - Social History Alcohol Use: Rare Substance Use Type: Reports: Marijuana Substance Use Comment - Amount & Last Used: Smoked 4 days ago; 12-08-16 Smoking Status (MU): Former Smoker Type: Cigarettes Have You Smoked in the Last Year: Yes Review of Systems Negative: Fever Neurological: Other - Positive AMS, flight of idea, paranoia, confrontational, and depression; Negative hearing voices, and SI All Other Systems Reviewed And Are Negative: Yes Physical Exam Triage Information Reviewed: Yes Vital Signs On Initial Exam: Initial Vitals Temp Pulse Resp BP Pulse Ox 97.3 F 113 22 134/93 95 07/29/17 20:32 12/20/16 20:32 12/20/16 20:32 12/20/16 20:32 12/20/16 20:32 Vital Signs Reviewed: Yes Appearance: Positive: Well-Appearing, No Pain Distress Skin: Positive: Warm, Skin Color Reflects Adequate Perfusion, Dry Head/Face: Positive: Normal Head/Face Inspection Eyes: Positive: EOMI, MISTY ENT: Positive: Normal ENT inspection Neck: Positive: Supple, Nontender Respiratory/Lung Sounds: Positive: Clear to Auscultation, Breath Sounds Present Cardiovascular: Positive: RRR, Pulses are Symmetrical in both Upper and Lower Extremities Abdomen Description: Positive: Nontender, Soft Bowel Sounds: Positive: Present Musculoskeletal: Positive: Normal, Strength/ROM Intact Neurological: Positive: Sensory/Motor Intact, Alert, Oriented to Person Place, Time Psychiatric: Positive: Other - Anxious. Paranoid. Hallucinating. Diagnostics - Vital Signs Vital Signs Temp Pulse Resp BP Pulse Ox 12/20/16 20:36 98.4 F 114 22 134/93 95 12/20/16 20:32 97.3 F 113 22 134/93 95 - Laboratory Result Diagrams: 12/20/16 23:25 12/20/16 23:25 Lab Statement: Any lab studies that have been ordered have been reviewed, and results considered in the medical decision making process. Altered Mental Statu Course/Dx - Course Assessment/Plan: 56 year old M brought in by police 941 to [facility] for AMS since 1999 today. He reports I am being treated like toxic waste. Pt has flight of idea, paranoia, and is confrontational. Pt reports depression. Pt denies hearing voices, and SI. PMHx of schizophrenia. UTox reveals presumptive positive for cannabinoids. Patient is medically cleared. - Diagnoses Discharge Diagnoses: Acute psychosis Discharge - Discharge Plan Condition: Stable Disposition: ADMITTED TO [facility] Discharge Disposition Comment: to psych The documentation as recorded by the Eliu chery Alfonso accurately reflects the service I personally performed and the decisions made by me, Papa Amaya.
[2016-12-21 07:41] VITALS: BP 145/98
--- NOTE | 2016-12-21 18:24 | ED ---
Progress - Progress Note Progress Note: pt. signed out by Dr. Amaya. he was transferred to the [facility]. dx: depression, SI, condition stable. pt work was signed to allow pt to be transferred. - Consult/PCP Time Called: 09:30 Course/Dx - Diagnoses Provider Diagnoses: Acute psychosis
== END 2016-12-21 07:53 | disposition short-term general hospital (02) ==
LOC: ED 20:30
DX: F29 Unspecified psychosis not due to a substance or known physiological condition (principal); F20.9 Schizophrenia, unspecified; F31.9 Bipolar disorder, unspecified; F17.210 Nicotine dependence, cigarettes, uncomplicated
CPT/HCPCS: 36415; 80053; 80307; 80320; 80329; 81003; 81015; 84443; 85025; 87086; 93005; 96372; 99283; A9270-GY; G0480; J1200; J1630; J2060; J3486

== ENCOUNTER → 2017-01-25 09:35 | Emergency (ER) | payer OTHER ==
[2017-01-25 09:47] VITALS: BP 141/82
[2017-01-25 10:48] LABS: Urine Bacteria Absent (Absent); Urine Bilirubin Negative (Negative); Urine Glucose Negative (Negative); Urine Nitrite Negative (Negative)
[2017-01-25 11:01] LABS: ALT 26 U/L (7-52); AST 29 U/L (13-39); Alkaline Phosphatase 49 U/L (34-104); Anion Gap 6 mmol/L (2-11); BUN/Creatinine Ratio 21.5 (8-20); Blood Urea Nitrogen 20 mg/dL (6-24); CO2 Carbon Dioxide 28 mmol/L (22-32); Calcium 9.7 mg/dL (8.6-10.3); Chloride 99 mmol/L (101-111); EGFR African American 107.7 (>60); EGFR Non-African American 83.7 (>60); Glucose 102 mg/dL (70-100); Sodium 133 mmol/L (133-145)
[2017-01-25 11:02] LABS: Acetaminophen < 15 mcg/mL; Alcohol < 10 mg/dL (<10); Salicylate < 2.50 mg/dL (<30)
[2017-01-25 11:11] LABS: TSH (Thyroid Stimulating Horm) 2.56 mcIU/mL (0.34-5.60)
[2017-01-25 12:50] LABS: Hematocrit 44 % (42-52); Hemoglobin 14.6 g/dl (14.0-18.0); Mean Corpuscular HGB Conc 33 g/dl (31-36); Mean Corpuscular Hemoglobin 29 pg (27-31); Mean Corpuscular Volume 88 fL (80-94); Mean Platelet Volume 8 um3 (7.4-10.4); Red Blood Count 4.97 10^6/ul (4.0-5.4); Red Cell Distribution Width 16 % (10.5-15); White Blood Count 8.8 10^3/ul (3.5-10.8)
--- NOTE | 2017-02-11 14:47 | ED ---
Audra Arias Edward, scribed for Papa Amaya on 01/25/17 at 1004 . Psychiatric Complaint - HPI Summary HPI Summary: 56 y/o male presents to the ED c/o homicidal ideation. At triage, the pt states "I want to kill someone. The person who took away my diginity, talking to me slowly like I was nothing more then a booger eating moron. He lives in a fantasy world." Pt's symptoms started around 2 days ago, per triage. Denies depression, hearing voice. Smoker and uses marijuana occasionally. PMHx bipolar disorder. - History Of Current Complaint Chief Complaint: EDMentalHealth Time Seen by Provider: 01/25/17 10:01 Hx Obtained From: Patient Has Homicidal: Reports: Thoughts - Allergies/Home Medications Allergies/Adverse Reactions: Allergies Allergy/AdvReac Type Severity Reaction Status Date / Time No Known Allergies Allergy Verified 10/20/16 07:12 PMH/Surg Hx/FS Hx/Imm Hx Previously Healthy: No Sensory History: Denies: Hx Contacts or Glasses, Hx Hearing Aid Opthamlomology History: Denies: Hx Contacts or Glasses Psychiatric History: Reports: Hx Anxiety, Hx Schizophrenia, Hx Bipolar Disorder , Hx Substance Abuse - EtOH Denies: Hx Eating Disorder, Hx of Violent Episodes Against Others - Surgical History Surgery Procedure, [facility] and Place: [facility] removal - Immunization History Date of Tetanus Vaccine: unknown Infectious Disease History: No Infectious Disease History: Denies: Traveled Outside the [place] in Last 30 Days - Family History Known Family History: Positive: Other - psychotic disorders, EtOH abuse, grandmother - thyroid problems Negative: Cardiac Disease, Diabetes - Social History Alcohol Use: Rare Hx Substance Use: Yes Substance Use Type: Reports: Marijuana Substance Use Comment - Amount & Last Used: Smoked 4 days ago; 12-08-16 Hx Tobacco Use: Yes Smoking Status (MU): Former Smoker Type: Cigarettes Have You Smoked in the Last Year: Yes Review of Systems Constitutional: Negative Eyes: Negative ENT: Negative Cardiovascular: Negative Respiratory: Negative Gastrointestinal: Negative Genitourinary: Negative Musculoskeletal: Negative Skin: Negative Neurological: Negative Psychological: Other - HI All Other Systems Reviewed And Are Negative: Yes Physical Exam Triage Information Reviewed: Yes Vital Signs On Initial Exam: Initial Vitals Temp Pulse Resp BP Pulse Ox 97.8 F 73 17 141/82 97 01/25/17 09:44 01/25/17 09:44 01/25/17 09:44 01/25/17 09:44 01/25/17 09:44 Vital Signs Reviewed: Yes Appearance: Positive: Well-Appearing, No Pain Distress Skin: Positive: Warm, Skin Color Reflects Adequate Perfusion, Dry Head/Face: Positive: Normal Head/Face Inspection Eyes: Positive: EOMI, MISTY ENT: Positive: Normal ENT inspection Neck: Positive: Supple, Nontender Respiratory/Lung Sounds: Positive: Clear to Auscultation, Breath Sounds Present Cardiovascular: Positive: RRR, Pulses are Symmetrical in both Upper and Lower Extremities Abdomen Description: Positive: Nontender, Soft Bowel Sounds: Positive: Present Musculoskeletal: Positive: Normal, Strength/ROM Intact Neurological: Positive: Normal, Sensory/Motor Intact, Alert, Oriented to Person Place, Time Psychiatric: Positive: Depressed - Jony Coma Scale Coma Scale Total: 15 Diagnostics - Vital Signs Vital Signs Temp Pulse Resp BP Pulse Ox 01/25/17 09:44 97.8 F 73 17 141/82 97 - Laboratory Lab Results: Lab Results 01/25/17 01/25/17 01/25/17 Range/Units 10:10 10:10 10:17 WBC 8.8 (3.5-10.8) 10^3/ul RBC 4.97 (4.0-5.4) 10^6/ul Hgb 14.6 (14.0-18.0) g/dl Hct 44 (42-52) % MCV 88 (80-94) fL MCH 29 (27-31) pg MCHC 33 (31-36) g/dl RDW 16 H (10.5-15) % Plt Count 136 L (150-450) 10^3/ul MPV 8 (7.4-10.4) um3 Neut % (Auto) 67.5 (38-83) % Lymph % (Auto) 22.3 L (25-47) % [place] % (Auto) 9.4 H (1-9) % Eos % (Auto) 0.4 (0-6) % Baso % (Auto) 0.4 (0-2) % Absolute Neuts (auto) 5.9 (1.5-7.7) 10^3/ul Absolute Lymphs (auto) 2.0 (1.0-4.8) 10^3/ul Absolute Monos (auto) 0.8 (0-0.8) 10^3/ul Absolute Eos (auto) 0 (0-0.6) 10^3/ul Absolute Basos (auto) 0 (0-0.2) 10^3/ul Absolute Nucleated RBC 0.01 10^3/ul Nucleated RBC % 0.1 Sodium 133 (133-145) mmol/L Potassium 4.0 (3.5-5.0) mmol/L Chloride 99 L (101-111) mmol/L Carbon Dioxide 28 (22-32) mmol/L Anion Gap 6 (2-11) mmol/L BUN 20 (6-24) mg/dL Creatinine 0.93 (0.67-1.17) mg/dL Est GFR ( Amer) 107.7 (>60) Est GFR (Non-Af Amer) 83.7 (>60) BUN/Creatinine Ratio 21.5 H (8-20) Glucose 102 H (70-100) mg/dL Calcium 9.7 (8.6-10.3) mg/dL Total Bilirubin 0.40 (0.2-1.0) mg/dL AST 29 (13-39) U/L ALT 26 (7-52) U/L Alkaline Phosphatase 49 (34-104) U/L Total Protein 7.0 (6.4-8.9) g/dL Albumin 4.0 (3.2-5.2) g/dL Globulin 3.0 (2-4) g/dL Albumin/Globulin Ratio 1.3 (1-3) TSH 2.56 (0.34-5.60) mcIU/mL Urine Color Yellow Urine Appearance Cloudy Urine pH 7.0 (5-9) Ur Specific [place] 1.017 (1.010-1.030) Urine Protein Negative (Negative) Urine Ketones Trace H (Negative) Urine Blood 1+ H (Negative) Urine Nitrate Negative (Negative) Urine Bilirubin Negative (Negative) Urine Urobilinogen Negative (Negative) Ur Leukocyte Esterase 1+ H (Negative) Urine WBC (Auto) 1+(6-10/hpf) H (Absent) Urine RBC (Auto) 1+(3-5/hpf) H (Absent) Amorphous Crystals Present H (Absent) Urine Bacteria Absent (Absent) Urine Glucose Negative (Negative) Salicylates < 2.50 (<30) mg/dL Acetaminophen < 15 mcg/mL Serum Alcohol < 10 (<10) mg/dL Result Diagrams: 01/25/17 10:10 01/25/17 10:10 Lab Statement: Any lab studies that have been ordered have been reviewed, and results considered in the medical decision making process. Course/Dx - Course Assessment/Plan: 56 y/o male presents to the ED c/o homicidal ideation. At triage, the pt states "I want to kill someone. The person who took away my diginity, talking to me slowly like I was nothing more then a booger eating moron. He lives in a fantasy world." Pt's symptoms started around 2 days ago, per triage. Denies depression, hearing voice. Smoker and uses marijuana occasionally. PMHx bipolar disorder. Pt is medically cleared for MHU evaluation at 13:00. - Differential Dx/Clinical Impression Provider Diagnosis: Homicidal behavior Discharge - Discharge Plan Condition: Stable Disposition: PSYCHIATRIC FACILITY-[facility] [place] Referrals: [facility], Behavioral Health Services [Other] - 02/10/17 1: 00 pm Non Staff,Doctor [Primary Care Provider] - The documentation as recorded by the Audra chery Edward accurately reflects the service I personally performed and the decisions made by , Papa Amaya.
== END | disposition home or self-care (01) ==
LOC: ED 09:35
DX: R45.850 Homicidal ideations (principal)
CPT/HCPCS: 36415; 80053; 80320; 80329; 81003; 81015; 84443; 85025; 87086; 99285; G0480

== ENCOUNTER 2017-04-05 03:45 | Emergency (ER) | payer SELFPAY ==
[2017-04-05 04:09] VITALS: BP 162/105
== END 2017-04-05 05:12 ==
LOC: ED 03:45
DX: G47.9 Sleep disorder, unspecified (principal); Z53.21 Procedure and treatment not carried out due to patient leaving prior to being seen by health care provider
CPT/HCPCS: 99282

== ENCOUNTER 2017-07-23 07:05 | Emergency (ER) | payer OTHER ==
[2017-07-23 09:12] LABS: ABS Basophils 0.1 10^3/ul (0-0.2); ABS Eosinophils 0.1 10^3/ul (0-0.6); ABS Monocytes 0.9 10^3/ul (0-0.8); ABS Neutrophils 6.1 10^3/ul (1.5-7.7); ABS Nucleated RBC 0 10^3/ul; Eosinophil % 0.9 % (0-6); Hematocrit 44 % (42-52); Lymphocyte % 21.7 % (25-47); Mean Corpuscular HGB Conc 34 g/dl (31-36); Mean Corpuscular Hemoglobin 30 pg (27-31); Mean Corpuscular Volume 89 fL (80-94); Mean Platelet Volume 8 um3 (7.4-10.4); Nucleated Red Blood Cells % 0.1; Platelet Count 126 10^3/ul (150-450); Red Blood Count 4.97 10^6/ul (4.0-5.4); Red Cell Distribution Width 14 % (10.5-15); White Blood Count 9.1 10^3/ul (3.5-10.8)
[2017-07-23 09:20] LABS: EGFR Non-African American 77.6 (>60)
[2017-07-23] MEDS ORDERED: Nicotine Lozenge* 4 MG LOZENGE MT PRN (09:30)
[2017-07-23 10:14] LABS: Urine Appearance Clear; Urine Blood Negative (Negative); Urine Color Yellow; Urine Ketones Negative (Negative); Urine Protein Negative (Negative); Urine Specific Gravity 1.012 (1.010-1.030); Urine Urobilinogen Negative (Negative)
[2017-07-23 16:39] VITALS: BP 129/72
--- NOTE | 2017-07-24 00:27 | ED ---
Paulino Arias Stephanie, scribed for Marjorie García MD on 07/23/17 at 1248 . Psychiatric Complaint - HPI Summary HPI Summary: The pt is a 57 y/o M BIBA on a 941 to the ED at 07:10. The [employer]ending [employer]icer believed the pt was a danger to himself because he was not taking his medications. The pt is not quite sure why he is here. The pt denies SI and HI. The pt said its a mystery as to why he was even here. The pt states he was at home when Belle MARSH took him to the ED. The pt has been in the hospital for depakote OD in the past. He has never been admitted to [facility] in the past. Pt is a who is service connected for mental illness, hx schizoaffective disorder, per prior note from Dr. Ruth. The pt is worried about his who has Alzheimer's. - History Of Current Complaint Chief Complaint: EDMentalHealth Time Seen by Provider: 07/23/17 08:01 Hx Obtained From: Patient, Medical Records Onset/Duration: Still Present Timing: Constant Severity Initially: Mild Severity Currently: Mild Aggravating Factor(s): Nothing Alleviating Factor(s): Nothing Associated Signs And Symptoms: Positive: Negative Related History: Positive For: Prior Psychiatric Issues Has Suicidal: Denies: Thoughts Has Homicidal: Denies: Thoughts - Risk Factor(s) Completed Suicide Risk Factors: Male - Allergies/Home Medications Allergies/Adverse Reactions: Allergies Allergy/AdvReac Type Severity Reaction Status Date / Time No Known Allergies Allergy Verified 07/23/17 07:07 Home Medications: Home Medications [place] Carbonate TAB* 900 mg PO BEDTIME 07/23/17 [History Confirmed 07/23/17] PMH/Surg Hx/FS Hx/Imm Hx Previously Healthy: No Sensory History: Denies: Hx Contacts or Glasses, Hx Hearing Aid Opthamlomology History: Denies: Hx Contacts or Glasses Psychiatric History: Reports: Hx Anxiety, Hx Schizophrenia, Hx Bipolar Disorder , Hx Suicide Attempt - depakote overdose , Hx Substance Abuse - EtOH Denies: Hx Eating Disorder, Hx of Violent Episodes Against Others - Surgical History Surgery Procedure, Year, and Place: [facility] thorax cyst removal - Immunization History Date of Tetanus Vaccine: unknown Infectious Disease History: No Infectious Disease History: Denies: Traveled Outside the [place] in Last 30 Days - Family History Known Family History: Positive: Other - psychotic disorders, EtOH abuse, grandmother - thyroid problems Negative: Cardiac Disease, Diabetes - Social History Occupation: Unemployed Lives: With Family Alcohol Use: Rare Hx Substance Use: Yes Substance Use Type: Reports: Marijuana Substance Use Comment - Amount & Last Used: Smoked 4 days ago; 12-08-17 Hx Tobacco Use: Yes Smoking Status (MU): Former Smoker Type: Cigarettes Have You Smoked in the Last Year: Yes Review of Systems Negative: Fever Cardiovascular: Negative Respiratory: Negative Gastrointestinal: Negative Neurological: Negative Positive: Other - Negative: SI, HI All Other Systems Reviewed And Are Negative: Yes Physical Exam - Summary Physical Exam Summary: Appearance: Well appearing, no pain distress, obese Skin: Warm, color reflects adequate perfusion Head: Normal Head/Face inspection Eyes: Conjunctiva clear ENT: Normal inspection Neck: Supple, no nodes, no JVD. Respiratory: Lungs clear, Normal breath sounds, no respiratory distress Cardio: RRR, No murmur, pulses normal, brisk capillary refill Abdomen: soft, nontender Bowel sounds: present Musculoskeletal: Strength Intact/ ROM intact. No calf tenderness. No edema. Neuro: Alert, muscle tone normal, facial symmetry, speech normal, sensory/motor intact Psychological: Normal, good eye contact Triage Information Reviewed: Yes Vital Signs On Initial Exam: Initial Vitals Temp Pulse Resp BP Pulse Ox 97.4 F 89 16 154/101 96 07/23/17 07:08 07/23/17 07:08 07/23/17 07:08 07/23/17 07:08 07/23/17 07:08 Vital Signs Reviewed: Yes Diagnostics - Vital Signs Vital Signs Temp Pulse Resp BP Pulse Ox 07/23/17 07:08 97.4 F 89 16 154/101 96 - Laboratory Lab Results: Lab Results 07/23/17 07/23/17 07/23/17 Range/Units 08:43 08:43 09:25 WBC 9.1 (3.5-10.8) 10^3/ul RBC 4.97 (4.0-5.4) 10^6/ul Hgb 15.0 (14.0-18.0) g/dl Hct 44 (42-52) % MCV 89 (80-94) fL MCH 30 (27-31) pg MCHC 34 (31-36) g/dl RDW 14 (10.5-15) % Plt Count 126 L (150-450) 10^3/ul MPV 8 (7.4-10.4) um3 Neut % (Auto) 66.6 (38-83) % Lymph % (Auto) 21.7 L (25-47) % [place] % (Auto) 10.2 H (0-7) % Eos % (Auto) 0.9 (0-6) % Baso % (Auto) 0.6 (0-2) % Absolute Neuts (auto) 6.1 (1.5-7.7) 10^3/ul Absolute Lymphs (auto) 2.0 (1.0-4.8) 10^3/ul Absolute Monos (auto) 0.9 H (0-0.8) 10^3/ul Absolute Eos (auto) 0.1 (0-0.6) 10^3/ul Absolute Basos (auto) 0.1 (0-0.2) 10^3/ul Absolute Nucleated RBC 0 10^3/ul Nucleated RBC % 0.1 Sodium 137 (133-145) mmol/L Potassium 3.9 (3.5-5.0) mmol/L Chloride 105 (101-111) mmol/L Carbon Dioxide 26 (22-32) mmol/L Anion Gap 6 (2-11) mmol/L BUN 16 (6-24) mg/dL Creatinine 0.99 (0.67-1.17) mg/dL Est GFR ( Amer) 99.9 (>60) Est GFR (Non-Af Amer) 77.6 (>60) BUN/Creatinine Ratio 16.2 (8-20) Glucose 104 H (70-100) mg/dL Calcium 9.7 (8.6-10.3) mg/dL Total Bilirubin 0.40 (0.2-1.0) mg/dL AST 22 (13-39) U/L ALT 9 (7-52) U/L Alkaline Phosphatase 50 (34-104) U/L Total Protein 7.3 (6.4-8.9) g/dL Albumin 4.2 (3.2-5.2) g/dL Globulin 3.1 (2-4) g/dL Albumin/Globulin Ratio 1.4 (1-3) TSH 3.10 (0.34-5.60) mcIU/mL Urine Color Yellow Urine Appearance Clear Urine pH 7.0 (5-9) Ur Specific [place] 1.012 (1.010-1.030) Urine Protein Negative (Negative) Urine Ketones Negative (Negative) Urine Blood Negative (Negative) Urine Nitrate Negative (Negative) Urine Bilirubin Negative (Negative) Urine Urobilinogen Negative (Negative) Ur Leukocyte Esterase Negative (Negative) Urine Glucose Negative (Negative) Salicylates < 2.50 (<30) mg/dL Urine Opiates Screen (None Detect) Acetaminophen < 15 mcg/mL Ur Barbiturates Screen (None Detect) Valproic Acid 95.0 (50-100) mcg/mL Ur Phencyclidine Scrn (None Detect) Ur Amphetamines Screen (None Detect) U Benzodiazepines Scrn (None Detect) Urine Cocaine Screen (None Detect) U Cannabinoids Screen (None Detect) Serum Alcohol < 10 (<10) mg/dL 07/23/17 Range/Units 09:30 WBC (3.5-10.8) 10^3/ul RBC (4.0-5.4) 10^6/ul Hgb (14.0-18.0) g/dl Hct (42-52) % MCV (80-94) fL MCH (27-31) pg MCHC (31-36) g/dl RDW (10.5-15) % Plt Count (150-450) 10^3/ul MPV (7.4-10.4) um3 Neut % (Auto) (38-83) % Lymph % (Auto) (25-47) % [place] % (Auto) (0-7) % Eos % (Auto) (0-6) % Baso % (Auto) (0-2) % Absolute Neuts (auto) (1.5-7.7) 10^3/ul Absolute Lymphs (auto) (1.0-4.8) 10^3/ul Absolute Monos (auto) (0-0.8) 10^3/ul Absolute Eos (auto) (0-0.6) 10^3/ul Absolute Basos (auto) (0-0.2) 10^3/ul Absolute Nucleated RBC 10^3/ul Nucleated RBC % Sodium (133-145) mmol/L Potassium (3.5-5.0) mmol/L Chloride (101-111) mmol/L Carbon Dioxide (22-32) mmol/L Anion Gap (2-11) mmol/L BUN (6-24) mg/dL Creatinine (0.67-1.17) mg/dL Est GFR ( Amer) (>60) Est GFR (Non-Af Amer) (>60) BUN/Creatinine Ratio (8-20) Glucose (70-100) mg/dL Calcium (8.6-10.3) mg/dL Total Bilirubin (0.2-1.0) mg/dL AST (13-39) U/L ALT (7-52) U/L Alkaline Phosphatase (34-104) U/L Total Protein (6.4-8.9) g/dL Albumin (3.2-5.2) g/dL Globulin (2-4) g/dL Albumin/Globulin Ratio (1-3) TSH (0.34-5.60) mcIU/mL Urine Color Urine Appearance Urine pH (5-9) Ur Specific [place] (1.010-1.030) Urine Protein (Negative) Urine Ketones (Negative) Urine Blood (Negative) Urine Nitrate (Negative) Urine Bilirubin (Negative) Urine Urobilinogen (Negative) Ur Leukocyte Esterase (Negative) Urine Glucose (Negative) Salicylates (<30) mg/dL Urine Opiates Screen None detected (None Detect) Acetaminophen mcg/mL Ur Barbiturates Screen None detected (None Detect) Valproic Acid (50-100) mcg/mL Ur Phencyclidine Scrn None detected (None Detect) Ur Amphetamines Screen None detected (None Detect) U Benzodiazepines Scrn Presumptive positive A (None Detect) Urine Cocaine Screen None detected (None Detect) U Cannabinoids Screen None detected (None Detect) Serum Alcohol (<10) mg/dL Result Diagrams: 07/23/17 08:43 07/23/17 08:43 Lab Statement: Any lab studies that have been ordered have been reviewed, and results considered in the medical decision making process. Re-Evaluation - Re-Evaluation First Eval Re-Evaluation Time: 10:23 Change: Unchanged Comment: Cleared for MHE. Pt in no distress. Course/Dx - Course Course Of Treatment: Valproic acid and lithium levels in therapeutic. The pt was medically cleared at 10:23 and will be taken to [facility]. At 15:55, ED physician spoke to EDD Ziegler, about plan of care for the pt. Karlie spoke with Dr. Ruth and he recommends that the pt can be discharged home. - Differential Dx/Clinical Impression Differential Diagnosis/HQI/PQRI: Positive: Anxiety, Bipolar Disorder, Depression , Suicidal Ideation Provider Diagnosis: mood disorder not otherwise specified Discharge - Discharge Plan Condition: Stable Disposition: HOME Referrals: No Primary Care Phys,NOPCP [Primary Care Provider] - [facility] [place] [facility] REFERRAL [Outside] - As Soon As Possible Additional Instructions: RETURN TO THE ER FOR ANY NEW OR WORSENING SYMPTOMS The documentation as recorded by the Paulino chery Stephanie accurately reflects the service I personally performed and the decisions made by , Marjorie García MD.
== END 2017-07-23 17:19 | disposition home or self-care (01) ==
LOC: ED 07:05
DX: F39 Unspecified mood [affective] disorder (principal); Z87.891 Personal history of nicotine dependence
CPT/HCPCS: 36415; 80053; 80164; 80178; 80307; 80320; 80329; 81003; 84443; 85025; 99284; G0480